=== PATIENT | male | born 1965 | race Caucasian/White ===

== ENCOUNTER 2017-02-03 13:49 | Emergency (ER) | payer BC ==
[~2017-02-03] VITALS: Ht 172.7 cm; Wt 84.1 kg
[~2017-02-03 13:49] MED LIST: ATIVAN 0.50.5 MG/TAB PO; LEVAQUIN 5500 MG/TAB PO; MOBIC15 MG PO; NORCO 325 MG-51 TAB PO; OMNICEF 300MG300 MG PO; PREDNISONE20 MG PO; PRILOSEC 20MG20 MG PO; SINGULAIR; TENORMIN 2525 MG/TAB PO; VENTOLIN0.09 MG IH; ZYRTEC 10MG10 MG PO
[2017-02-03 13:52] VITALS: TEMP 97.9
[2017-02-03 14:27] LABS: PH 5 (5-8); SQUAMOUS EPITHELIAL 0-2 /hpf; URINE APPEARANCE Clear; URINE BACTERIA None Seen /hpf; URINE BILIRUBIN Negative (NEGATIVE); URINE BLOOD Negative (NEGATIVE); URINE COLOR Amber; URINE GLUCOSE Negative (NEGATIVE); URINE KETONE Negative (NEGATIVE); URINE RBC 0-2 /hpf; URINE UROBILINOGEN >=4.0 mg/dL (NEGATIVE); URINE WBC 0-2 /hpf
[2017-02-03 14:39] LABS: BASO # 0.1 (0.0-0.2); EOS # 0.2 (0.0-0.7); EOS % 4.2 % (0-4.0); GRAN # 2.3 (1.4-6.5); GRAN % 39.7 % (42.2-75.2); HEMATOCRIT 40.4 % (42.0-52.0); HEMOGLOBIN 13.3 g/dl (13.5-18.0); LYMPH # 2.6 (1.2-3.4); LYMPH % 45.3 % (20.0-51.0); MEAN CELL VOLUME 90 fl (80.0-100.0); MEAN CORPUSCULAR HEMOGLOBIN 30 pg (27.0-31.0); MEAN CORPUSCULAR HGB CONC 33 g/dl (33.0-37.0); MEAN PLATELET VOLUME 12.1 fl (7.4-10.4); MONO # 0.6 (0.1-0.6); MONO % 9.6 % (1.7-9.3); PLATELET COUNT 72 K/mm3 (130-400); WHITE BLOOD COUNT 5.7 K/mm3 (4.8-10.8)
[2017-02-03 14:44] LABS: ADJUSTED CALCIUM 8.5 mg/dL (8.4-10.2); ALBUMIN 3.9 gm/dL (3.5-5.0); BILIRUBIN,TOTAL 0.7 mg/dL (0.0-1.0); CALCIUM 8.4 mg/dL (8.4-10.2); CREATININE, serum 0.77 mg/dL (0.66-1.25); POTASSIUM 3.9 mmol/L (3.4-5.0); TOTAL PROTEIN 7.5 gm/dL (6.4-8.2)
[2017-02-03] MEDS ORDERED: FLEXERIL 1010 MG/TAB PO (15:41)
[2017-02-03] MEDS ORDERED: NORCO 325 MG-51 TAB PO (15:41)
[2017-02-03 15:50] VITALS: BP 128/62; PULSE 78
== END 2017-02-03 15:51 | disposition home or self-care (01) ==
LOC: COL.ER 13:49
PROVIDERS: Nurse Practitioner
DX: R10.9 Unspecified abdominal pain (principal); I10 Essential (primary) hypertension; K21.9 Gastro-esophageal reflux disease without esophagitis; F17.210 Nicotine dependence, cigarettes, uncomplicated; Z98.890 Other specified postprocedural states
CPT/HCPCS: J1885; J7030

== ENCOUNTER → 2017-03-23 | Outpatient (CLI) | payer BC ==
[~2017-03-23] MED LIST changes: +FLEXERIL 1010 MG/TAB PO
== END ==
LOC: COL.RAD 15:45
DX: M79.674 Pain in right toe(s) (principal)

== ENCOUNTER → 2017-03-28 | Outpatient (CLI) | payer BC ==
[2017-03-28 17:16] LABS: BASO # 0.1 (0.0-0.2); BASO % 1.5 % (0.0-2.0); EOS # 0.3 (0.0-0.7); EOS % 4.9 % (0-4.0); GRAN # 2.7 (1.4-6.5); GRAN % 41.4 % (42.2-75.2); HEMATOCRIT 41.7 % (42.0-52.0); HEMOGLOBIN 14.2 g/dl (13.5-18.0); LYMPH # 2.7 (1.2-3.4); LYMPH % 41.9 % (20.0-51.0); MEAN CELL VOLUME 90 fl (80.0-100.0); MEAN CORPUSCULAR HEMOGLOBIN 31 pg (27.0-31.0); MEAN CORPUSCULAR HGB CONC 34 g/dl (33.0-37.0); MEAN PLATELET VOLUME 14.1 fl (7.4-10.4); MONO # 0.7 (0.1-0.6); PLATELET COUNT 68 K/mm3 (130-400); RED BLOOD COUNT 4.66 M/mm3 (4.20-5.60); REDCELL DISTRIBUTION WIDTH-CV 13.1 % (11.5-14.5); WHITE BLOOD COUNT 6.5 K/mm3 (4.8-10.8)
[2017-03-28 17:40] LABS: C-REACTIVE PROTEIN < 0.5 mg/dL (0.0-0.9); ERYTHROCYTE SEDIMENTATION RATE 7 mm/hr (0-30)
== END ==
LOC: COL.LAB 14:05
PROVIDERS: Family Medicine
DX: M79.674 Pain in right toe(s) (principal)

== ENCOUNTER 2017-08-02 14:45 | Emergency (ER) | payer OTHER ==
[~2017-08-02] VITALS: Ht 172.7 cm; Wt 82.7 kg
[2017-08-02 14:53] VITALS: TEMP 98.7
[2017-08-02 16:13] LABS: BASO # 0.1 (0.0-0.2); BASO % 0.9 % (0.0-2.0); EOS # 0.2 (0.0-0.7); EOS % 4.5 % (0-4.0); GRAN # 2.5 (1.4-6.5); GRAN % 45.5 % (42.2-75.2); HEMATOCRIT 41.4 % (42.0-52.0); HEMOGLOBIN 13.7 g/dl (13.5-18.0); LYMPH # 2.1 (1.2-3.4); LYMPH % 38.1 % (20.0-51.0); MEAN CELL VOLUME 92 fl (80.0-100.0); MEAN CORPUSCULAR HEMOGLOBIN 30 pg (27.0-31.0); MEAN CORPUSCULAR HGB CONC 33 g/dl (33.0-37.0); MEAN PLATELET VOLUME 12.9 fl (7.4-10.4); MONO # 0.6 (0.1-0.6); MONO % 10.6 % (1.7-9.3); PLATELET COUNT 53 K/mm3 (130-400); RED BLOOD COUNT 4.52 M/mm3 (4.20-5.60); REDCELL DISTRIBUTION WIDTH-CV 12.8 % (11.5-14.5)
[2017-08-02 16:17] LABS: ALANINE AMINOTRANSFERASE 127 U/L (21-72); ALBUMIN 3.9 gm/dL (3.5-5.0); ALKALINE PHOSPHATASE 138 U/L (50-136); ANION GAP 9 mmol/L (7-16); AST,SGOT 128 U/L (15-37); BILIRUBIN,TOTAL 0.8 mg/dL (0.0-1.0); BLOOD UREA NITROGEN 16 mg/dL (9-20); CALCIUM 9.3 mg/dL (8.4-10.2); CARBON DIOXIDE 25 mmol/L (22-30); CHLORIDE 107 mmol/L (98-107); CREATININE, serum 0.77 mg/dL (0.66-1.25); GLUCOSE 108 mg/dL (74-106); POTASSIUM 4.1 mmol/L (3.4-5.0); SODIUM 140 mmol/L (137-145); TOTAL PROTEIN 7.6 gm/dL (6.4-8.2)
[2017-08-02 16:22] LABS: INR 1.2 (0.8-3.0); PROTHROMBIN TIME 13.7 SECONDS (9.7-12.8)
[2017-08-02 16:25] LABS: PARTIAL THROMBOPLASTIN TIME 37.6 SECONDS (26.0-37.0)
[2017-08-02 16:30] LABS: TROPONIN-I < 0.012 ng/mL (0.000-0.034)
[2017-08-02] MEDS ORDERED: FLEXERIL 1010 MG/TAB PO (17:27)
[2017-08-02] MEDS ORDERED: PERCOCET 325 MG1 TA2 PO (17:27)
[2017-08-02 17:37] VITALS: BP 142/99; PULSE 76
== END 2017-08-02 17:38 | disposition home or self-care (01) ==
LOC: COL.ER 14:45
PROVIDERS: Emergency Medicine
DX: R07.89 Other chest pain (principal); M54.9 Dorsalgia, unspecified; R05 Cough; D69.6 Thrombocytopenia, unspecified; I10 Essential (primary) hypertension; K21.9 Gastro-esophageal reflux disease without esophagitis; B19.20 Unspecified viral hepatitis C without hepatic coma; F17.210 Nicotine dependence, cigarettes, uncomplicated; Z86.711 Personal history of pulmonary embolism
CPT/HCPCS: J2270; J2360; J7030; Q9967

== ENCOUNTER → 2017-08-07 | Outpatient (CLI) | payer OTHER ==
[~2017-08-07] MED LIST changes: +PERCOCET 325 MG1 TA2 PO
== END ==
LOC: COL.LAB 15:18
DX: B19.20 Unspecified viral hepatitis C without hepatic coma (principal)
CPT/HCPCS: 87522

== ENCOUNTER → 2017-08-07 | Outpatient (CLI) | payer OTHER | LOC: COL.RAD 15:33 | DX: M25.512 Pain in left shoulder (principal) ==

== ENCOUNTER 2018-09-27 16:20 | Emergency (ER) | payer SELFPAY ==
[~2018-09-27] VITALS: Ht 172.7 cm; Wt 93.2 kg
[~2018-09-27 16:20] MED LIST changes: +ASPIRIN 81M81 MG/TA2 PO; +MULTI VITAMINS1 TAB PO; +PROAIR RES117 MCG/Ac IH; +TOPROL XL 25MG25 MG PO; +XARELTO20 MG PO
[2018-09-27 16:23] VITALS: TEMP 98.6
[2018-09-27 17:01] LABS: ALANINE AMINOTRANSFERASE 119 U/L (21-72); ALBUMIN 3.7 gm/dL (3.5-5.0); ALKALINE PHOSPHATASE 265 U/L (50-136); ANION GAP 8 mmol/L (7-16); AST,SGOT 211 U/L (15-37); BILIRUBIN,TOTAL 1.7 mg/dL (0.0-1.0); BLOOD UREA NITROGEN 15 mg/dL (9-20); CALCIUM 8.9 mg/dL (8.4-10.2); CARBON DIOXIDE 24 mmol/L (22-30); CHLORIDE 105 mmol/L (98-107); CREATININE, serum 0.83 (0.66-1.25); GLUCOSE 94 mg/dL (74-106); LIPASE 373 U/L (23-300); POTASSIUM 4.6 mmol/L (3.4-5.0); SODIUM 138 mmol/L (137-145); TOTAL PROTEIN 8.5 gm/dL (6.4-8.2)
[2018-09-27 17:04] LABS: BASO # 0.1 (0.0-0.2); BASO % 1.4 % (0.0-2.0); EOS # 0.3 (0.0-0.7); EOS % 3.9 % (0-4.0); GRAN % 51.1 % (42.2-75.2); HEMATOCRIT 42.9 % (42.0-52.0); HEMOGLOBIN 14.4 g/dl (13.5-18.0); LYMPH # 2.5 (1.2-3.4); LYMPH % 31.4 % (20.0-51.0); MEAN CELL VOLUME 92 fl (80.0-100.0); MEAN CORPUSCULAR HEMOGLOBIN 31 pg (27.0-31.0); MEAN CORPUSCULAR HGB CONC 34 g/dl (33.0-37.0); MONO # 0.9 (0.1-0.6); MONO % 11.8 % (1.7-9.3); RED BLOOD COUNT 4.69 M/mm3 (4.20-5.60); REDCELL DISTRIBUTION WIDTH-CV 14.8 % (11.5-14.5)
[2018-09-27 17:07] LABS: PLATELET COUNT 45 K/mm3 (130-400)
[2018-09-27 17:13] LABS: TROPONIN-I < 0.012 ng/mL (0.000-0.035)
[2018-09-27 17:25] LABS: INR 1.2 (0.8-3.0); PROTHROMBIN TIME 13.2 SECONDS (9.7-12.8)
[2018-09-27 17:27] LABS: PARTIAL THROMBOPLASTIN TIME 37.7 SECONDS (26.0-37.0)
[2018-09-27 18:10] LABS: COLLECTION METHOD CLEAN CATCH
[2018-09-27 18:15] LABS: MUCOUS Present /lpf; PH 6 (5-8); SQUAMOUS EPITHELIAL 0-2 /hpf; URINE APPEARANCE Clear; URINE BACTERIA None Seen /hpf; URINE BILIRUBIN Negative (NEGATIVE); URINE BLOOD Negative (NEGATIVE); URINE COLOR Yellow; URINE GLUCOSE Negative (NEGATIVE); URINE KETONE Negative (NEGATIVE); URINE LEUKOCYTE ESTERASE Negative (NEGATIVE); URINE NITRATE Negative (NEGATIVE); URINE PROTEIN(semi-quant) Negative (NEGATIVE); URINE RBC 0-2 /hpf; URINE UROBILINOGEN >=4.0 mg/dL (NEGATIVE)
[2018-09-27] MEDS ORDERED: CORGARD20 MG PO (18:23)
[2018-09-27] MEDS ORDERED: ZYPREXA10 MG PO (18:23)
[2018-09-27] MEDS ORDERED: COGENTIN 1MG1 MG/TAB PO (18:23)
[2018-09-27] MEDS ORDERED: PROZAC40 MG PO (18:23)
[2018-09-27] MEDS ORDERED: VOLTAREN GEL 1%1 TU TP (18:24)
[2018-09-27] MEDS ORDERED: CARAFATE 1GM1 G PO (18:24)
[2018-09-27] MEDS ORDERED: LAMICTAL 25MG T25 MG PO (18:24)
[2018-09-27] MEDS ORDERED: AMBIEN 10MG10 MG PO (18:25)
[2018-09-27] MEDS ORDERED: PROAIR HFA0.09 MG/AC IH (18:25)
[2018-09-27] MEDS ORDERED: PROTONIX 40MG T40 MG PO (18:25)
[2018-09-27 19:28] VITALS: BP 135/91; PULSE 73
== END 2018-09-27 19:30 | disposition home or self-care (01) ==
LOC: COL.ER 16:20
PROVIDERS: Emergency Medicine
DX: K74.60 Unspecified cirrhosis of liver (principal); D69.6 Thrombocytopenia, unspecified; C22.0 Liver cell carcinoma; F17.210 Nicotine dependence, cigarettes, uncomplicated
CPT/HCPCS: J2405; J3010; Q9967

== ENCOUNTER 2018-10-08 17:34 | Emergency (ER) | payer SELFPAY ==
[~2018-10-08] VITALS: Ht 172.7 cm; Wt 92.3 kg
[~2018-10-08 17:34] MED LIST changes: +AMBIEN 10MG10 MG PO; +CARAFATE 1GM1 G PO; +COGENTIN 1MG1 MG/TAB PO; +CORGARD20 MG PO; +LAMICTAL 25MG T25 MG PO; +PROAIR HFA0.09 MG/AC IH; +PROTONIX 40MG T40 MG PO; +PROZAC40 MG PO; +VOLTAREN GEL 1%1 TU TP; +ZYPREXA10 MG PO
[2018-10-08 17:44] VITALS: TEMP 99.9
[2018-10-08 18:11] LABS: BASO # 0.1 (0.0-0.2); BASO % 1.2 % (0.0-2.0); EOS # 0.1 (0.0-0.7); EOS % 2.3 % (0-4.0); GRAN # 2.5 (1.4-6.5); GRAN % 52.2 % (42.2-75.2); HEMATOCRIT 39.2 % (42.0-52.0); HEMOGLOBIN 13.1 g/dl (13.5-18.0); LYMPH # 1.6 (1.2-3.4); LYMPH % 32.4 % (20.0-51.0); MEAN CELL VOLUME 91 fl (80.0-100.0); MEAN CORPUSCULAR HEMOGLOBIN 30 pg (27.0-31.0); MEAN CORPUSCULAR HGB CONC 33 g/dl (33.0-37.0); MONO # 0.6 (0.1-0.6); MONO % 11.7 % (1.7-9.3); RED BLOOD COUNT 4.31 M/mm3 (4.20-5.60); REDCELL DISTRIBUTION WIDTH-CV 14.8 % (11.5-14.5)
[2018-10-08 18:14] LABS: PLATELET COUNT 38 K/mm3 (130-400)
[2018-10-08 18:23] LABS: ALBUMIN 3.4 gm/dL (3.5-5.0); BILIRUBIN,TOTAL 1.3 mg/dL (0.0-1.0); C-REACTIVE PROTEIN 0.8 mg/dL (0.0-0.9); CALCIUM 8.8 mg/dL (8.4-10.2); CREATININE, serum 0.84 (0.66-1.25); POTASSIUM 4.1 mmol/L (3.4-5.0); TOTAL PROTEIN 7.8 gm/dL (6.4-8.2)
[2018-10-08 19:34] VITALS: BP 136/87; PULSE 74
[2018-10-08 19:34] LABS: COLLECTION METHOD CLEAN CATCH
[2018-10-08 19:40] LABS: MUCOUS Present /lpf; PH 5 (5-8); SQUAMOUS EPITHELIAL None Seen /hpf; URINE APPEARANCE Clear; URINE BACTERIA None Seen /hpf; URINE BILIRUBIN Negative (NEGATIVE); URINE BLOOD Negative (NEGATIVE); URINE COLOR Amber; URINE GLUCOSE Negative (NEGATIVE); URINE KETONE Negative (NEGATIVE); URINE LEUKOCYTE ESTERASE Negative (NEGATIVE); URINE NITRATE Negative (NEGATIVE); URINE PROTEIN(semi-quant) Negative (NEGATIVE); URINE RBC 0-2 /hpf; URINE UROBILINOGEN >=4.0 mg/dL (NEGATIVE)
== END 2018-10-08 19:35 | disposition home or self-care (01) ==
LOC: COL.ER 17:34
PROVIDERS: Family Medicine
DX: K86.1 Other chronic pancreatitis (principal); C22.8 Malignant neoplasm of liver, primary, unspecified as to type
CPT/HCPCS: J1170; J2405; J7030

== ENCOUNTER 2018-10-15 16:12 | Emergency (ER) | payer OTHER ==
[~2018-10-15] VITALS: Ht 172.7 cm; Wt 88.6 kg
[2018-10-15 16:21] VITALS: TEMP 97.1
[2018-10-15] MEDS ORDERED: NEXAVAR200 M1 PO (16:25)
[2018-10-15 16:59] LABS: INR 1.2 (0.8-3.0); PROTHROMBIN TIME 13.9 SECONDS (9.7-12.8)
[2018-10-15 17:00] LABS: BASO # 0.1 (0.0-0.2); BASO % 1.2 % (0.0-2.0); EOS # 0.2 (0.0-0.7); GRAN # 2.7 (1.4-6.5); GRAN % 54.5 % (42.2-75.2); HEMATOCRIT 40.7 % (42.0-52.0); HEMOGLOBIN 13.8 g/dl (13.5-18.0); LYMPH # 1.5 (1.2-3.4); LYMPH % 29.7 % (20.0-51.0); MEAN CELL VOLUME 90 fl (80.0-100.0); MEAN CORPUSCULAR HEMOGLOBIN 31 pg (27.0-31.0); MEAN CORPUSCULAR HGB CONC 34 g/dl (33.0-37.0); MONO # 0.6 (0.1-0.6); MONO % 11.2 % (1.7-9.3); RED BLOOD COUNT 4.52 M/mm3 (4.20-5.60); REDCELL DISTRIBUTION WIDTH-CV 15.1 % (11.5-14.5)
[2018-10-15 17:02] LABS: PARTIAL THROMBOPLASTIN TIME 38.6 SECONDS (26.0-37.0)
[2018-10-15 17:12] LABS: PLATELET COUNT 35 K/mm3 (130-400)
[2018-10-15 17:16] LABS: ALANINE AMINOTRANSFERASE 103 U/L (21-72); ALBUMIN 3.6 gm/dL (3.5-5.0); ALKALINE PHOSPHATASE 254 U/L (50-136); ANION GAP 7 mmol/L (7-16); AST,SGOT 235 U/L (15-37); BILIRUBIN,TOTAL 1.6 mg/dL (0.0-1.0); BLOOD UREA NITROGEN 11 mg/dL (9-20); C-REACTIVE PROTEIN 0.7 mg/dL (0.0-0.9); CALCIUM 8.6 mg/dL (8.4-10.2); CARBON DIOXIDE 23 mmol/L (22-30); CHLORIDE 107 mmol/L (98-107); CREATININE, serum 0.87 (0.66-1.25); GLUCOSE 105 mg/dL (74-106); LIPASE 488 U/L (23-300); POTASSIUM 3.8 mmol/L (3.4-5.0); SODIUM 137 mmol/L (137-145); TOTAL PROTEIN 8.5 gm/dL (6.4-8.2)
[2018-10-15 17:30] LABS: TROPONIN-I < 0.012 ng/mL (0.000-0.035)
[2018-10-15] MEDS ORDERED: ZOFRAN ODT4 MG PO (18:51)
[2018-10-15] MEDS ORDERED: ROXICODONE 55 MG/TAB PO (18:51)
[2018-10-15 19:20] VITALS: BP 143/92; PULSE 72
== END 2018-10-15 19:20 | disposition home or self-care (01) ==
LOC: COL.ER 16:12
PROVIDERS: Emergency Medicine
DX: C22.0 Liver cell carcinoma (principal); R07.89 Other chest pain; R10.11 Right upper quadrant pain; I10 Essential (primary) hypertension; F17.210 Nicotine dependence, cigarettes, uncomplicated
CPT/HCPCS: J1170; J2405; Q9967

== ENCOUNTER 2018-10-20 11:21 | Inpatient (IN) | payer OTHER ==
[~2018-10-20] VITALS: Ht 172.7 cm; Wt 84.5 kg
[~2018-10-20 11:21] MED LIST changes: +NEXAVAR200 M1 PO; +ROXICODONE 55 MG/TAB PO; +ZOFRAN ODT4 MG PO
[2018-10-20 12:38] LABS: ALBUMIN 3.6 gm/dL (3.5-5.0); BILIRUBIN,TOTAL 2.2 mg/dL (0.0-1.0); C-REACTIVE PROTEIN 1.4 mg/dL (0.0-0.9); CALCIUM 8.9 mg/dL (8.4-10.2); CREATININE, serum 0.85 (0.66-1.25); POTASSIUM 4.7 mmol/L (3.4-5.0); TOTAL PROTEIN 8.6 gm/dL (6.4-8.2)
[2018-10-20 12:53] LABS: BASO # 0.1 (0.0-0.2); BASO % 1.1 % (0.0-2.0); EOS # 0.1 (0.0-0.7); EOS % 1.7 % (0-4.0); GRAN # 3.6 (1.4-6.5); HEMATOCRIT 46.2 % (42.0-52.0); HEMOGLOBIN 15.3 g/dl (13.5-18.0); LYMPH # 1.9 (1.2-3.4); LYMPH % 30.4 % (20.0-51.0); MEAN CELL VOLUME 91 fl (80.0-100.0); MEAN CORPUSCULAR HEMOGLOBIN 30 pg (27.0-31.0); MEAN CORPUSCULAR HGB CONC 33 g/dl (33.0-37.0); MONO # 0.6 (0.1-0.6); MONO % 9.5 % (1.7-9.3); RED BLOOD COUNT 5.06 M/mm3 (4.20-5.60); REDCELL DISTRIBUTION WIDTH-CV 14.8 % (11.5-14.5)
[2018-10-20 13:01] LABS: PLATELET COUNT 46 K/mm3 (130-400)
[2018-10-20] MEDS ORDERED: NEURONTIN300 MG/CAP PO (13:53)
--- NOTE | 2018-10-20 15:23 | NUR ---
PATIENT ADMITTED TO ROOM 319 ORIENTED TO THE ROOM ALSO. DAUGHTER HAS JUST ARRIVED.
[2018-10-20 15:29] VITALS: BP 148/89; PULSE 57; TEMP 98.3
[2018-10-20 17:15] LABS: INR 1.3 (0.8-3.0); PROTHROMBIN TIME 14.3 SECONDS (9.7-12.8)
--- NOTE | 2018-10-20 18:00 | NUR ---
NOTIFIED RENZO IN RADIOLOGY THAT THIS PATIENT WILL NEED A ABDOMEN ULTRASOUND IN THE MORNING. PATIENT NEEDS TO BE NPO AFTER MIDNIGHT.
--- NOTE | 2018-10-20 19:34 | NUR ---
Report received from LESIA Carroll. Patient laying on right side when this nurse entered the room. C/o pain 01/26 to abdomen. Noted to be slightly firm and distended. States he hasn't had a bowel movement in a couple days and thinks the pain could be from that. PRN Miralax given at 1715 and still awaiting results. PRN Dilaudid given for abdominal pain. Awaiting for results. Will reassess patient.
[2018-10-20 19:46] VITALS: BP 157/90; PULSE 57; TEMP 98
[2018-10-20 21:12] LABS: COLLECTION METHOD CLEAN CATCH
[2018-10-20 21:17] LABS: MUCOUS Present /lpf; PH 6 (5-8); SQUAMOUS EPITHELIAL None Seen /hpf; URINE APPEARANCE Clear; URINE BACTERIA None Seen /hpf; URINE BILIRUBIN Negative (NEGATIVE); URINE BLOOD Negative (NEGATIVE); URINE COLOR Amber; URINE GLUCOSE Negative (NEGATIVE); URINE KETONE Negative (NEGATIVE); URINE LEUKOCYTE ESTERASE Negative (NEGATIVE); URINE NITRATE Negative (NEGATIVE); URINE PROTEIN(semi-quant) Negative (NEGATIVE); URINE UROBILINOGEN >=4.0 mg/dL (NEGATIVE)
--- NOTE | 2018-10-20 21:47 | NUR ---
Post-void residual 0ml. Patient stated he voided a lot.
[2018-10-20 23:21] VITALS: BP 156/86; PULSE 62; TEMP 98.3
[2018-10-21 03:50] VITALS: BP 152/72; PULSE 63; TEMP 97.7
--- NOTE | 2018-10-21 03:56 | NUR ---
Patient called and stated he was vomiting. Small amount of emesis noted. PRN Zofran given. Patient stated this was effective, but he was in a lot of pain. PRN Dilaudid given. Patient stated this helped a little bit. Warm blanket also given to help reduce pain. Stated this was a little helpful as well. When patient stated he was in a lot of pain, he was crying and noted to breathe fast. Currently resting in bed with eyes closed. Will monitor.
[2018-10-21 07:07] LABS: BASO # 0.1 (0.0-0.2); BASO % 0.8 % (0.0-2.0); EOS # 0.1 (0.0-0.7); GRAN # 3.8 (1.4-6.5); GRAN % 56.7 % (42.2-75.2); HEMATOCRIT 43.3 % (42.0-52.0); HEMOGLOBIN 14.3 g/dl (13.5-18.0); LYMPH # 2.2 (1.2-3.4); LYMPH % 32.5 % (20.0-51.0); MEAN CELL VOLUME 91 fl (80.0-100.0); MEAN CORPUSCULAR HEMOGLOBIN 30 pg (27.0-31.0); MEAN CORPUSCULAR HGB CONC 33 g/dl (33.0-37.0); MONO # 0.5 (0.1-0.6); MONO % 7.7 % (1.7-9.3); RED BLOOD COUNT 4.76 M/mm3 (4.20-5.60); REDCELL DISTRIBUTION WIDTH-CV 14.6 % (11.5-14.5)
[2018-10-21 07:09] LABS: PLATELET COUNT 42 K/mm3 (130-400)
[2018-10-21 07:18] LABS: ALBUMIN 3.3 gm/dL (3.5-5.0); CREATININE, serum 0.72 (0.66-1.25); INR 1.2 (0.8-3.0); MAGNESIUM 1.8 mg/dL (1.6-2.3); PHOSPHOROUS 3.1 mg/dL (2.5-4.5); POTASSIUM 4.1 mmol/L (3.4-5.0); PROTHROMBIN TIME 14.1 SECONDS (9.7-12.8); TOTAL PROTEIN 7.9 gm/dL (6.4-8.2)
--- NOTE | 2018-10-21 07:19 | NUR ---
Report given to LESIA Carroll
[2018-10-21 07:44] VITALS: BP 145/81; PULSE 92; TEMP 98.3
--- NOTE | 2018-10-21 08:15 | NUR ---
PATIENT ASSESSMENT COMPLETED. COMPLAINS OF ABDOMEN PAIN PRN DILAUDID WILL BE GIVEN AT 0830 WHEN IT CAN BE GIVEN. ALONG WITH NEW ORDER FROM DR. SAAVEDRA
--- NOTE | 2018-10-21 11:33 | NUR ---
Plan: To return home with support. Glenna . Assess: Patient reports that he has a recent DXof cancer and does not know what to expect at home. Patient reports that he has been fairly independent. Patient report that he is uninsured and recieved the ppw for financial assistance. Patient denies and declines having a DPOA or setting one up. Patient indicated that he may in the near future need Home health once he has some type of insurance. Patient reports not having a PCP. Patient reports that he uses [facility] for RX and will need medication assistance if sent home with medications. Action: Called Terrie for financial aids officer, patient will need medication voucher upon dc with medications. Educated patient on voucher and community resources. Follow-up suggested.
[2018-10-21 11:46] VITALS: BP 140/74; PULSE 62; TEMP 98.6
--- NOTE | 2018-10-21 13:30 | NUR ---
PATIENT RESTING IN BED. HE REPORTS THAT PAIN IS TOLERABLE AND DOES NOT WANT ANY MEDICATION AT THIS TIME. HE IS STARTING TO HAVE SOME SMALL HARD BOWEL MOVEMENTS RESULTING IN SOME ABDOMEN PAIN RELIEF. HE WILL CALL ME IF PAIN INCREASES, WILL CONTINUE TO MONITOR FOR NEEDS
[2018-10-21 15:48] VITALS: BP 165/92; PULSE 66; TEMP 97.5
--- NOTE | 2018-10-21 16:26 | NUR ---
PATIENT REQUESTED ANOTHER SUPPOSITORY. THIS WAS PROVIDED PER HIS REQUEST. HE INSERTS IT HIMSELF WITH SOME LUBRICATION JELLY THAT WAS SUPPLIED TO HIM ALSO.
[2018-10-21 19:18] VITALS: BP 143/81; PULSE 68; TEMP 98.6
--- NOTE | 2018-10-21 19:50 | NUR ---
Shift assessment complete. Pt resting in bed, awake, a&o, cooperative c cares. Continued c/o abd pain rated "8/10"; PRN Sarah admin per pt req. Pt also c/o continued constipation; PRN Mirilax provided. Pt any other c/o. IV patent. Tele in place. Pt denies further needs. Call light in reach, will monitor.
[2018-10-21 23:37] VITALS: BP 128/77; PULSE 70; TEMP 98.5
[2018-10-22 04:06] VITALS: BP 164/86; PULSE 70; TEMP 98.1
--- NOTE | 2018-10-22 05:53 | NUR ---
Pt resting in bed, condition unchanged. Pt has rested well int this shift c few needs. Continued c/o abd pain which is worse when trying to have a BM. PRN pain mushroom growth media mixer several times per req, pt reports IV dilaudid "takes the edge off" but reports Roxicodone increases pain. Pt has had multiple small, hard BM's this shift c some relief, states "things are finally moving". Denies nausea or other c/o. Denies further needs at this time. Call light in reach et remains at bedside.
[2018-10-22 06:54] VITALS: BP 124/68; PULSE 66; TEMP 97.9
[2018-10-22 07:16] LABS: BASO % 0.9 % (0.0-2.0); EOS # 0.1 (0.0-0.7); EOS % 2.5 % (0-4.0); GRAN # 2.4 (1.4-6.5); GRAN % 53.8 % (42.2-75.2); HEMATOCRIT 39.4 % (42.0-52.0); HEMOGLOBIN 13.3 g/dl (13.5-18.0); LYMPH # 1.5 (1.2-3.4); MEAN CELL VOLUME 91 fl (80.0-100.0); MEAN CORPUSCULAR HEMOGLOBIN 31 pg (27.0-31.0); MEAN CORPUSCULAR HGB CONC 34 g/dl (33.0-37.0); MONO # 0.4 (0.1-0.6); MONO % 8.6 % (1.7-9.3); RED BLOOD COUNT 4.32 M/mm3 (4.20-5.60); REDCELL DISTRIBUTION WIDTH-CV 14.2 % (11.5-14.5)
[2018-10-22 07:18] LABS: PLATELET COUNT 28 K/mm3 (130-400)
[2018-10-22 07:27] LABS: ALBUMIN 3.1 gm/dL (3.5-5.0); BILIRUBIN,TOTAL 2.6 mg/dL (0.0-1.0); CREATININE, serum 0.67 (0.66-1.25); MAGNESIUM 1.7 mg/dL (1.6-2.3); TOTAL PROTEIN 7.3 gm/dL (6.4-8.2)
--- NOTE | 2018-10-22 07:55 | NUR ---
Pt alert and oriented. Pt stable. Pt reports pain in left abdomen and believes the oxycodone makes it worse and requests Dilaudid for pain. Pt RAC IV patent no redness or infiltration noted. pt spouse at bedside. Pt NPO for CT this am. Pt has call light in reach and denies SOB or dizziness.
[2018-10-22 09:03] LABS: INR 1.2 (0.8-3.0); PROTHROMBIN TIME 14.1 SECONDS (9.7-12.8)
--- NOTE | 2018-10-22 10:31 | NUR ---
SW attended clinical rounds. Awaiting results of CT scan. SW consulted financial counselor, Mg. Financial counseling to meet with the patient today. SW to continue to follow.
--- NOTE | 2018-10-22 12:04 | NUR ---
First visit from the oral and maxillofacial surgery resident. Solid Surface Fabricator prayed with patient and . No other needs right now.
[2018-10-22 12:09] VITALS: BP 140/89; PULSE 62; TEMP 98.4
[2018-10-22 15:49] VITALS: BP 153/113; PULSE 67; TEMP 97.6
[2018-10-22 15:57] VITALS: BP 178/94; PULSE 67
--- NOTE | 2018-10-22 18:18 | NUR ---
Pt stable this afternoon. Pt BP was increased but hospitalist restarted home BP meds and pain controlled with PRN Dilaudid. Pt IV patent no redness or infiltration noted. Pt has call light in reach and spouse at bedside. Pt pain in left abdomen. Pt only consuming clear liquids. Pt given PRN dulcolax with only gas noted.
--- NOTE | 2018-10-22 19:01 | NUR ---
Pt report given to Judy GRAF
[2018-10-22 19:51] VITALS: BP 141/94; PULSE 63; TEMP 98.4
--- NOTE | 2018-10-22 20:10 | NUR ---
Shift assessment complete. Pt resting in bed, awake, a&o, cooperative c cares. Pt c/o cont abd pain rated "8/10"; PRN pain emergency medical technician/driver per pt req. Pt also continued c/o constipation but reports passing gas. Denies any other c/o. IV patent. Tele in place. Pt denies needs. Call light in reach, will monitor.
[2018-10-23 00:08] VITALS: BP 152/73; PULSE 61; TEMP 98.6
[2018-10-23 04:33] VITALS: BP 101/67; PULSE 60; TEMP 98.6
[2018-10-23 06:17] LABS: BASO % 0.7 % (0.0-2.0); EOS # 0.1 (0.0-0.7); EOS % 3.4 % (0-4.0); GRAN # 2.1 (1.4-6.5); GRAN % 50.6 % (42.2-75.2); HEMATOCRIT 39.8 % (42.0-52.0); HEMOGLOBIN 13.3 g/dl (13.5-18.0); LYMPH # 1.5 (1.2-3.4); LYMPH % 36.8 % (20.0-51.0); MEAN CELL VOLUME 91 fl (80.0-100.0); MEAN CORPUSCULAR HEMOGLOBIN 30 pg (27.0-31.0); MEAN CORPUSCULAR HGB CONC 33 g/dl (33.0-37.0); MONO # 0.3 (0.1-0.6); MONO % 8.3 % (1.7-9.3); REDCELL DISTRIBUTION WIDTH-CV 13.8 % (11.5-14.5)
[2018-10-23 06:22] LABS: PLATELET COUNT 31 K/mm3 (130-400)
[2018-10-23 06:23] LABS: ALBUMIN 3.1 gm/dL (3.5-5.0); BILIRUBIN,TOTAL 2.4 mg/dL (0.0-1.0); CALCIUM 8.1 mg/dL (8.4-10.2); CREATININE, serum 0.74 (0.66-1.25); POTASSIUM 4.1 mmol/L (3.4-5.0); TOTAL PROTEIN 7.4 gm/dL (6.4-8.2)
[2018-10-23 08:13] VITALS: BP 148/90; PULSE 71; TEMP 99.1
--- NOTE | 2018-10-23 09:11 | NUR ---
Pt stable this am.Pt alert and oriented. Pt pain managed with PRN meds. Pt edu on pain management and trying to transition to PO pain meds to manage pain. Pt tolerating clear liquids. Pt has spouse at bedside through the night. Pt IV patent no infiltration or redness. Pt am assessment completed. Pt has call light in reach.
[2018-10-23 12:48] VITALS: BP 143/82; PULSE 60; TEMP 98.6
--- NOTE | 2018-10-23 15:28 | NUR ---
SW met with the patient and patient's to review discharge plan. The patient reports that he still plans to return home with his . SW discussed primary care. The patient reports that he already has an appointment scheduled at [facility] on 10/24. He states that he plans to follow up there. The patient reports that money is tight for him and his and that he will need assistance with meds. SW discussed how [facility] provides medication assistace. SW to continue to follow to help with medication assistance.
[2018-10-23 16:40] VITALS: BP 142/89; PULSE 65; TEMP 98.4
--- NOTE | 2018-10-23 18:55 | NUR ---
Pt stable and pain managed with PRN meds. Pt IV free of complications. Pt had large BM s/p Mag citrate. Pt has spouse at bedside and denies needs. Pt tolerated low fat diet well. No nausea or vomiting. Pt has call light in reach and denies needs.
[2018-10-23 19:49] VITALS: BP 147/85; PULSE 66; TEMP 99
--- NOTE | 2018-10-23 22:43 | NUR ---
Patient assessed around 1999. Reported level 6 pain to abdomen at that time, and was given PRN Oxycodone as requested. Voiced no other needs or concerns at that time. at bedside. Patient reports he has been having good bowel movements, and no longer feels constipated. PRN Oxycodone was effective for pain management. Peripheral IV site to right AC is patent, and site is without redness, warmth, swelling, and pain. Call light is within reach.
[2018-10-24 00:28] VITALS: BP 150/91; PULSE 63; TEMP 98.3
[2018-10-24 03:26] VITALS: BP 145/68; PULSE 60; TEMP 98
--- NOTE | 2018-10-24 04:01 | NUR ---
Patient has received PRN Oxycodone twice so far this shift, which is effective with pain management. Voices no other needs or concerns so far this shift. Resting in bed with eyes closed at this time. at bedside. Call light is within reach.
--- NOTE | 2018-10-24 06:30 | NUR ---
Patient given PRN Oxycodone for pain to abdomen per orders. Voices no other complaints at this time. Has been able to have multiple BMs throughout the night, and denies having any feelings of constipation. Abdomen soft and non-tender. Bowel sounds active x 4. continues to be at bedside. Restingin bed with eyes closed at this time. Call light is within reach. Has voiced no questions or concerns throughout the night.
[2018-10-24 06:56] LABS: BASO % 0.8 % (0.0-2.0); EOS # 0.1 (0.0-0.7); EOS % 2.8 % (0-4.0); GRAN # 1.8 (1.4-6.5); GRAN % 50.7 % (42.2-75.2); HEMATOCRIT 38.2 % (42.0-52.0); HEMOGLOBIN 12.7 g/dl (13.5-18.0); LYMPH # 1.4 (1.2-3.4); MEAN CELL VOLUME 90 fl (80.0-100.0); MEAN CORPUSCULAR HEMOGLOBIN 30 pg (27.0-31.0); MEAN CORPUSCULAR HGB CONC 33 g/dl (33.0-37.0); MONO # 0.2 (0.1-0.6); MONO % 6.7 % (1.7-9.3); RED BLOOD COUNT 4.26 M/mm3 (4.20-5.60)
[2018-10-24 06:59] LABS: PLATELET COUNT 36 K/mm3 (130-400)
[2018-10-24 07:09] LABS: CALCIUM 8.4 mg/dL (8.4-10.2); CREATININE, serum 0.75 (0.66-1.25); POTASSIUM 3.9 mmol/L (3.4-5.0)
[2018-10-24 07:31] VITALS: BP 142/81; PULSE 65; TEMP 97.9
--- NOTE | 2018-10-24 09:15 | NUR ---
in pt with room. Will d/c today. Denies any needs at this time.
[2018-10-24] MEDS ORDERED: ROXICODONE 55 MG/TAB PO (09:20)
[2018-10-24] MEDS ORDERED: MAGCITRATE PO (09:21)
--- NOTE | 2018-10-24 09:34 | NUR ---
Pt lying in bed, breathing even and unlabored. Breath sounds clear on auscultation. C/O pain 5/10 to abdomen, just finished breakfast. Informed pt medicatin would be given when available. Completed morning assessment. Pt planning to be d/c home today. Pt denies any needs at this time.
--- NOTE | 2018-10-24 09:44 | NUR ---
PRIYANKA and PRIYANKA student attended clinical rounds. The patient is to discharge back home with his today, 10/24. The patient will only be renewed for a prescription for Oxycodone. The patient reports that he can afford that med by using the RX eamon. The patient reports that him and his canceled his appointment today at the [facility], but that he will be going there today to reschedule his appointment. The patient had no other questions or concerns for SW. No additional needs at this time.
--- NOTE | 2018-10-24 10:40 | NUR ---
Discharge paperwork given, all questions asked and answered. INT to RAC removed, catheter tip intact. No redness or swelling noted. Denies any needs, all belongings with pt.
== END 2018-10-24 10:54 | disposition home or self-care (01) | DRG 438 ==
LOC: COL.ER 11:21 → MEDICAL 13:01
PROVIDERS: Family Medicine; Internal Medicine Gastroenterology; Physician Assistant; ADMIT Family Medicine
DX: K85.30 Drug induced acute pancreatitis without necrosis or infection (principal); E43 Unspecified severe protein-calorie malnutrition; I81 Portal vein thrombosis; C22.0 Liver cell carcinoma; I85.00 Esophageal varices without bleeding; T45.1X5A Adverse effect of antineoplastic and immunosuppressive drugs, initial encounter; D69.6 Thrombocytopenia, unspecified; I25.10 Atherosclerotic heart disease of native coronary artery without angina pectoris; I25.2 Old myocardial infarction; I10 Essential (primary) hypertension; K59.00 Constipation, unspecified; E86.0 Dehydration; B18.2 Chronic viral hepatitis C; Z68.28 Body mass index [BMI] 28.0-28.9, adult; F31.9 Bipolar disorder, unspecified; F41.9 Anxiety disorder, unspecified; K74.60 Unspecified cirrhosis of liver; R33.9 Retention of urine, unspecified; R74.0 Nonspecific elevation of levels of transaminase and lactic acid dehydrogenase [LDH]; F20.9 Schizophrenia, unspecified; F17.210 Nicotine dependence, cigarettes, uncomplicated; Z86.711 Personal history of pulmonary embolism; Z79.891 Long term (current) use of opiate analgesic; Z88.1 Allergy status to other antibiotic agents; Z88.9 Allergy status to unspecified drugs, medicaments and biological substances
CPT/HCPCS: 99222-AI; 99232-AI; 99233-AI; 99239; J1170; J2405; J7030; Q9967

== ENCOUNTER 2018-11-28 14:30 | Outpatient (RCR) | payer MEDICAID ==
[2018-11-14 08:43] VITALS: BP 123/79; PULSE 68; TEMP 97.9
[2018-11-14 10:16] LABS: HEMOGLOBIN 12.3 g/dl (13.5-18.0); MEAN CELL VOLUME 90 fl (80.0-100.0); MEAN CORPUSCULAR HEMOGLOBIN 31 pg (27.0-31.0); MEAN CORPUSCULAR HGB CONC 34 g/dl (33.0-37.0); RED BLOOD COUNT 3.96 M/mm3 (4.20-5.60); REDCELL DISTRIBUTION WIDTH-CV 14.8 % (11.5-14.5)
[2018-11-14 10:17] LABS: HEMATOCRIT 35.8 % (42.0-52.0)
[2018-11-14 10:18] LABS: PLATELET COUNT 40 K/mm3 (130-400)
[2018-11-14 10:44] LABS: BASOPHIL 1 % (0-2); EOSINOPHIL 4 % (0-4); LYMPHOCYTE 27 % (20.0-51.0); METAMYELOCYTE 1 % (0-0); NEUTROPHILS 59 % (42.0-75.2); PLATELET ESTIMATE DECREASED (NORMAL); TEAR DROP CELLS 1+
--- NOTE | 2018-11-21 14:50 | NUR ---
Here for cares. PICC intact right upper arm with sterile dressing change done with insertion site cleansed with chloraprep x 1, chlorhexidine impregnated disk applied, skin prep, stat lock, and tegaderm applied. no signs or sypmtoms of IV complications noted. no concerns voiced. to return next week for cares. voiced understanding of instructions.
[2018-11-21 14:52] VITALS: BP 119/76; PULSE 61; TEMP 98.5
[2018-11-21 14:55] LABS: HEMOGLOBIN 12.5 g/dl (13.5-18.0); MEAN CELL VOLUME 90 fl (80.0-100.0); MEAN CORPUSCULAR HEMOGLOBIN 31 pg (27.0-31.0); MEAN CORPUSCULAR HGB CONC 34 g/dl (33.0-37.0); RED BLOOD COUNT 4.08 M/mm3 (4.20-5.60); REDCELL DISTRIBUTION WIDTH-CV 15.4 % (11.5-14.5)
[2018-11-21 15:04] LABS: BILIRUBIN,TOTAL 1.9 mg/dL (0.0-1.0); CALCIUM 8.4 mg/dL (8.4-10.2); CREATININE, serum 0.75 (0.66-1.25); POTASSIUM 4.2 mmol/L (3.4-5.0); TOTAL PROTEIN 7.5 gm/dL (6.4-8.2)
[2018-11-21 15:24] LABS: HEMATOCRIT 36.9 % (42.0-52.0)
[2018-11-21 15:27] LABS: PLATELET COUNT 44 K/mm3 (130-400)
[2018-11-21 16:06] LABS: BAND 9 % (0-10); BASOPHIL 2 % (0-2); EOSINOPHIL 6 % (0-4); LYMPHOCYTE 32 % (20.0-51.0); METAMYELOCYTE 2 % (0-0); MYELOCYTE 1 % (0-0); NEUTROPHILS 44 % (42.0-75.2); PLATELET ESTIMATE DECREASED (NORMAL)
[2018-11-21 16:07] LABS: HYPOCHROMIA 1+
[2018-11-21 16:08] LABS: ANISOCYTOSIS 1+; POIKILOCYTOSIS 1+; POLYCHROMASIA 1+
[2018-11-21 16:09] LABS: TARGET CELLS 1+
[~2018-11-28] VITALS: Ht 172.7 cm; Wt 89.6 kg
[~2018-11-28 14:30] MED LIST changes: +MAGCITRATE PO; +NEURONTIN300 MG/CAP PO; +XIFAXAN550 MG PO
[2018-11-28 14:45] VITALS: BP 114/74; PULSE 76; TEMP 98.4
--- NOTE | 2018-11-28 15:30 | NUR ---
patient here for cares. With sterile technique right upper arm PICC dressing change done with insertion site cleansed with ChloraPrep 1, chlorhexidine impregnated disc applied, skin prep, StatLock, and Tegaderm applied. No signs or symptoms of IV complications noted. No concerns voiced. Patient to return next week for cares. Patient voiced understanding of instructions.
[2018-12-05] MEDS ORDERED: DAZIDOX10 MG PO (02:53)
[2018-12-05] MEDS ORDERED: CORGARD40 MG PO (02:54)
[2018-12-05] MEDS ORDERED: FENTANYL 25 MCG TD (02:56)
--- NOTE | 2018-12-05 09:10 | NUR ---
PICC intact right upper arm. With sterile technique right upper arm PICC dressing changes done with insertion site cleansed with ChloraPrep 1, chlorhexidine impregnated disc applied, skin prep, StatLock, and Tegaderm applied. No signs or symptoms of IV complications noted. No concerns voiced. Patient has been admitted to the medical unit. We will await plan of care.
--- NOTE | 2018-12-06 13:23 | NUR ---
PER KEARA,PICC LINE TO BE REMOVED TODAY INPT.
== END 2018-12-06 13:23 | disposition home or self-care (01) ==
LOC: EUO 14:30
PROVIDERS: Internal Medicine Medical Oncology
DX: Z45.2 Encounter for adjustment and management of vascular access device (principal); C22.0 Liver cell carcinoma
CPT/HCPCS: C1751

== ENCOUNTER 2018-12-04 21:49 | Inpatient (IN) | payer MEDICAID ==
[~2018-12-04] VITALS: Ht 172.7 cm; Wt 88.4 kg
[2018-12-04 22:44] LABS: BASO # 0.1 (0.0-0.2); BASO % 0.9 % (0.0-2.0); EOS # 0.2 (0.0-0.7); EOS % 1.9 % (0-4.0); GRAN # 5.5 (1.4-6.5); GRAN % 62.6 % (42.2-75.2); HEMOGLOBIN 12.8 g/dl (13.5-18.0); LYMPH # 2.1 (1.2-3.4); MEAN CELL VOLUME 87 fl (80.0-100.0); MEAN CORPUSCULAR HEMOGLOBIN 31 pg (27.0-31.0); MEAN CORPUSCULAR HGB CONC 35 g/dl (33.0-37.0); MONO # 0.9 (0.1-0.6); MONO % 10.1 % (1.7-9.3); PLATELET COUNT 65 K/mm3 (130-400); RED BLOOD COUNT 4.19 M/mm3 (4.20-5.60); REDCELL DISTRIBUTION WIDTH-CV 17.2 % (11.5-14.5)
[2018-12-04 22:54] LABS: ALBUMIN 3.1 gm/dL (3.5-5.0); BILIRUBIN,TOTAL 4.7 mg/dL (0.0-1.0); C-REACTIVE PROTEIN 1.4 mg/dL (0.0-0.9); CALCIUM 8.4 mg/dL (8.4-10.2); CREATININE, serum 0.75 (0.66-1.25); POTASSIUM 5.1 mmol/L (3.4-5.0); TOTAL PROTEIN 8.4 gm/dL (6.4-8.2)
[2018-12-04 22:56] LABS: HEMATOCRIT 36.6 % (42.0-52.0)
[2018-12-05] VITALS (7 sets, daily range): BP systolic 118–151; BP diastolic 68–99; PULSE 71–87; TEMP 97.8–98.6
--- NOTE | 2018-12-05 02:35 | NUR ---
Pt arrived to room 317, transferred per wheelchair by ED staff. Pt awake, a&o, cooperative c cares. Pt c/o continued abd pain, denies other c/o. PICC in place to R upper arm, patent. Pt oriented to room, unit policies et current POC. Questions invited et answered et pt verbalizes understanding. Pt denies needs at this time. Will continue c admit process.
[2018-12-05] MEDS ORDERED: DAZIDOX10 MG PO (02:53)
[2018-12-05] MEDS ORDERED: CORGARD40 MG PO (02:54)
[2018-12-05] MEDS ORDERED: FENTANYL 25 MCG TD (02:56)
--- NOTE | 2018-12-05 05:46 | NUR ---
Pt resting in bed, condition unchanged. Pt has had continued c/o abd pain. Pain rated 9/10 before pain remediation project engineer at 0430, pt now rating pain 2/10. Pt has otherwise rested int c very few needs. No needs at this time. at bedside, call light in reach.
[2018-12-05 06:28] LABS: BASO # 0.1 (0.0-0.2); BASO % 0.9 % (0.0-2.0); EOS # 0.2 (0.0-0.7); EOS % 2.3 % (0-4.0); GRAN % 55.9 % (42.2-75.2); HEMOGLOBIN 11.8 g/dl (13.5-18.0); LYMPH # 2.7 (1.2-3.4); LYMPH % 30.2 % (20.0-51.0); MEAN CELL VOLUME 89 fl (80.0-100.0); MEAN CORPUSCULAR HEMOGLOBIN 30 pg (27.0-31.0); MEAN CORPUSCULAR HGB CONC 34 g/dl (33.0-37.0); MONO # 0.9 (0.1-0.6); MONO % 10.3 % (1.7-9.3); PLATELET COUNT 66 K/mm3 (130-400); RED BLOOD COUNT 3.88 M/mm3 (4.20-5.60); REDCELL DISTRIBUTION WIDTH-CV 17.4 % (11.5-14.5)
[2018-12-05 06:37] LABS: ALBUMIN 2.8 gm/dL (3.5-5.0); BILIRUBIN,TOTAL 4.9 mg/dL (0.0-1.0); CALCIUM 8.1 mg/dL (8.4-10.2); CREATININE, serum 0.75 (0.66-1.25); POTASSIUM 3.8 mmol/L (3.4-5.0); TOTAL PROTEIN 7.6 gm/dL (6.4-8.2)
[2018-12-05 07:08] LABS: INR 1.5 (0.8-3.0); PROTHROMBIN TIME 18.3 SECONDS (9.7-12.8)
[2018-12-05 07:30] LABS: HEMATOCRIT 34.4 % (42.0-52.0)
--- NOTE | 2018-12-05 08:43 | NUR ---
Patien awake at start of shift with at bedside. A&O x 3. Patient had complaints of generalized pain. Provided IV pain medication. Patient consumed breakfast. No other needs identified at this time. Will continue to monitor.
--- NOTE | 2018-12-05 10:22 | NUR ---
Initial visit; Patient resting, Copy Lathe Operator spoke with his family, letting her know of the availability of spiritual care and offered God's blessings to Mr. Perez and herself.
--- NOTE | 2018-12-05 14:19 | NUR ---
PRIYANKA met with patient and about discharge planning. Patient lives independently at home with his . Patient's PCP is Dr Sheffield and he obtains prescriptions from [facility]. Patient reports he has had issues obtaining one medication but his insurance resolved the issue. Patient uses a cane for ambulation but no other DME is used and he does not use any home health services. Patient does not have a DPOA and he is not interested in completing one at this time. PRIYANKA does not anticipate any discharge needs but will follow as needed.
--- NOTE | 2018-12-05 17:24 | NUR ---
Client continued to be NPO this AM throughout midafternoon prior to abdominal ultrasound. Patient reports tolerating ultrasound well. Patient has had complaints of abdominal pain that is constant and stabbing, feeling of fullness. Rates pain 9 prior to medication administration and least level reported after medication given is 4. Patient awake and alert, cooperative throughout shift. Other than pain, patient able to consume late lunch after ultrasound. at bedside. VS stable. No further needs reported at this time. Will continue to monitor.
--- NOTE | 2018-12-05 19:54 | NUR ---
PT RESTING IN BED A+OX4 REPORTS NO PAIN AT THIS TIME. SOME HEART BURN REPORTED- CANDIDA INSTRUMENT PROCESSING TECH GAVE NEW ORDERS FOR HEART BURN. WILL GIVEN AT THIS TIME. PICC FLUSHES WELL, BLOOD RETURN NOTED. SHIFT ASSESSMENT COMPLETE. NO NEEDS AT THIS TIME
--- NOTE | 2018-12-05 20:15 | NUR ---
PT REPROTS "HEART BURN IS WORSE AFTER PECID". PT REPORTED N/V- PRN ZOFRAN GIVEN. PT REPORTS PAIN 7/10 AT THIS TIEM IN ABD- PRN PAIN MEDS GIVEN. ASSESSMENT OF PT AFTER NAUSEA AND PAIN MEDS - PT REPORTS "I FEEL SO MUCH BETTER AND MY PAIN IS AT A 4/10 NOW."
--- NOTE | 2018-12-05 22:30 | NUR ---
PT IS NOW SLEEPING IN BED, REPORTS NO NEEDS. AT BEDSIDE.
[2018-12-06 04:00] VITALS: BP 118/69; PULSE 75; TEMP 98.2
--- NOTE | 2018-12-06 04:25 | NUR ---
PT REPORTS 7/10 PAIN IN ABD - PRN PAIN MEDS GIVEN. VSS. PICC FLUSHES WELL, BLOOD RETRN NOTED. PT REPORTS NO N/V OR HEARTBURN. NO NEEDS AT THIS TIME. CALL LIGHT IN REACH
--- NOTE | 2018-12-06 05:29 | NUR ---
PT HAD HEARTBURN AT THE BEGINNING OF THE NIGHT, PRN PECID DID NOT RELIEVE THE HEARTBURN- PRN ZOFRAN RELIEVED HEARTBURN. PT RREPORTS 7/10 PAIN DURING NIGHT, PRN DILAIDID RELIEVED PAIN TO A 3-4/10 ON PAIN SCALE. PICC FLUSHES WELL, BLOOD RETURN NOTED X2. NO NEEDS AT THIS TIME. CALL LIGHT IN REACH
[2018-12-06 06:11] LABS: BASO # 0.1 (0.0-0.2); BASO % 1.1 % (0.0-2.0); EOS # 0.3 (0.0-0.7); EOS % 3.8 % (0-4.0); GRAN # 4.5 (1.4-6.5); GRAN % 50.1 % (42.2-75.2); HEMOGLOBIN 11.3 g/dl (13.5-18.0); LYMPH # 2.8 (1.2-3.4); LYMPH % 31.6 % (20.0-51.0); MEAN CELL VOLUME 89 fl (80.0-100.0); MEAN CORPUSCULAR HEMOGLOBIN 30 pg (27.0-31.0); MEAN CORPUSCULAR HGB CONC 34 g/dl (33.0-37.0); MONO # 1.1 (0.1-0.6); MONO % 12.9 % (1.7-9.3); PLATELET COUNT 63 K/mm3 (130-400); RED BLOOD COUNT 3.73 M/mm3 (4.20-5.60); REDCELL DISTRIBUTION WIDTH-CV 17.3 % (11.5-14.5)
[2018-12-06 06:15] LABS: HEMATOCRIT 33.1 % (42.0-52.0)
[2018-12-06 06:26] LABS: ALBUMIN 2.8 gm/dL (3.5-5.0); BILIRUBIN,TOTAL 3.8 mg/dL (0.0-1.0); CREATININE, serum 0.79 (0.66-1.25); POTASSIUM 4.4 mmol/L (3.4-5.0); TOTAL PROTEIN 7.9 gm/dL (6.4-8.2)
--- NOTE | 2018-12-06 06:51 | NUR ---
REPORT GIVEN TO LESIA SRINIVASAN. PT REPORTS NO NEEDS
[2018-12-06 08:26] VITALS: BP 124/81; PULSE 88; TEMP 98.1
--- NOTE | 2018-12-06 10:35 | NUR ---
patient assessment complete and charted. Patient sitting on edge of bed upon entry. Patient rating abdominal pain 01/26. Received dilaudid PRN per AUG. DEISI PICC, no complications, good blood return and flushes well. Patient denies SOB, chest pain, dizziness, palpitations. No skin integrity issues. Patient talkative and in good mood. Patient states he had a little emesis this morning. Per patient, "I don't plan on doing chemo anymore, I'm just going to live my life." Denies other needs at this time.
--- NOTE | 2018-12-06 10:39 | NUR ---
met with ipt and his at bedside this morning. Pt reports he is tired of side effects from treatment and not feeling better. He is feeling that it is time for him to do what he wants to do, which is to travel and do what is important to him. We did discuss that stopping treatment will allow his disease to progress and will likely shorten his life/intensify his symptoms. He believes that he is aware of that. He reports he has been thinking of this for some time now and has discussed with his daughter, who was not supportive. He was encouraged to discuss with Dr Guillen further. He believes his pain is as good as it will get although reports that his "patch" fell off in the shower. Will advise nurse.
[2018-12-06 13:06] VITALS: BP 120/76; PULSE 74; TEMP 98.2
--- NOTE | 2018-12-06 17:44 | NUR ---
Patient discharged, instructions discussed and reviewed. patient verbalized understanding. No further questions. Lisa, from [facility] removed DEISI PICC, no complications. Dressing covering site was CDI. No other needs or questions at this time. Escorted out with this nurse and . Patient ambulated to car.
== END 2018-12-06 17:15 | disposition home or self-care (01) | DRG 441 ==
LOC: COL.ER 21:49 → MEDICAL 12-05 01:51
PROVIDERS: Emergency Medicine; Nurse Practitioner; Physician Assistant; ADMIT Internal Medicine
DX: I81 Portal vein thrombosis (principal); K85.90 Acute pancreatitis without necrosis or infection, unspecified; C22.0 Liver cell carcinoma; R18.8 Other ascites; K76.6 Portal hypertension; I10 Essential (primary) hypertension; I25.10 Atherosclerotic heart disease of native coronary artery without angina pectoris; D69.6 Thrombocytopenia, unspecified; B19.20 Unspecified viral hepatitis C without hepatic coma; Z66 Do not resuscitate; E87.5 Hyperkalemia; R74.0 Nonspecific elevation of levels of transaminase and lactic acid dehydrogenase [LDH]; F31.9 Bipolar disorder, unspecified; E80.6 Other disorders of bilirubin metabolism; F41.9 Anxiety disorder, unspecified; F32.9 Major depressive disorder, single episode, unspecified; F20.9 Schizophrenia, unspecified; I25.2 Old myocardial infarction; Z86.711 Personal history of pulmonary embolism; Z88.6 Allergy status to analgesic agent; Z72.0 Tobacco use
CPT/HCPCS: 99222-AI; 99233-AI; 99239; J1170; J1650; J2405; J7030; Q9967

== ENCOUNTER 2018-12-20 20:51 | Inpatient (IN) | payer MEDICAID ==
[~2018-12-20] VITALS: Ht 172.7 cm; Wt 94.5 kg
[~2018-12-20 20:51] MED LIST changes: +CORGARD40 MG PO; +DAZIDOX10 MG PO; +FENTANYL 25 MCG TD
[2018-12-20 21:15] LABS: HEMOGLOBIN 12.6 g/dl (13.5-18.0); MEAN CELL VOLUME 88 fl (80.0-100.0); MEAN CORPUSCULAR HEMOGLOBIN 31 pg (27.0-31.0); MEAN CORPUSCULAR HGB CONC 36 g/dl (33.0-37.0); PLATELET COUNT 113 K/mm3 (130-400); RED BLOOD COUNT 4.05 M/mm3 (4.20-5.60); REDCELL DISTRIBUTION WIDTH-CV 20.9 % (11.5-14.5)
[2018-12-20 21:16] LABS: HEMATOCRIT 35.5 % (42.0-52.0)
[2018-12-20 21:24] LABS: ALBUMIN 2.9 gm/dL (3.5-5.0); C-REACTIVE PROTEIN 3.3 mg/dL (0.0-0.9); POTASSIUM 4.2 mmol/L (3.4-5.0); TOTAL PROTEIN 8.7 gm/dL (6.4-8.2)
[2018-12-20 21:27] LABS: INR 1.7 (0.8-3.0); PROTHROMBIN TIME 20.7 SECONDS (9.7-12.8)
[2018-12-20 21:28] LABS: LACTIC ACID 2.2 mmol/L (0.4-2.0)
[2018-12-20 21:29] LABS: PARTIAL THROMBOPLASTIN TIME 38.3 SECONDS (26.0-37.0)
[2018-12-20 21:34] LABS: TROPONIN-I 0.045 ng/mL (0.000-0.035)
[2018-12-20 22:04] LABS: BAND 3 % (0-10); LYMPHOCYTE 14 % (20.0-51.0); NEUTROPHILS 75 % (42.0-75.2); PLATELET ESTIMATE DECREASED (NORMAL)
[2018-12-20 22:05] LABS: ANISOCYTOSIS 2+
[2018-12-20 22:06] LABS: TARGET CELLS 1+
--- NOTE | 2018-12-20 22:50 | NUR ---
Pt arrived to room 318, transferred per stretcher by ED staff. at bedside. Pt awake, a&o, cooperative c cares. Pt/wi oriented to room, unit policies et current POC. Questions invited et answered, both verbalize understanding. Pt denies needs at this time. Call light in reach. Will continue c admit process.
[2018-12-20] MEDS ORDERED: LINZESS145CAP PO (22:57)
[2018-12-20 23:05] VITALS: BP 139/89; PULSE 83; TEMP 98.3
[2018-12-20 23:07] VITALS: BP 139/88; PULSE 84; TEMP 98.3
[2018-12-21] VITALS (9 sets, daily range): BP systolic 131–159; BP diastolic 75–102; PULSE 83–89; TEMP 97.3–98.9
[2018-12-21] MEDS ORDERED: FENTANYL 50MCG TD (00:26)
--- NOTE | 2018-12-21 05:25 | NUR ---
Pt resting in bed condition unchanged. Pt has had continued c/o abd pain, moderately well controlled c PRN pain meds upon request. Pain rated as little as "3/10" et as high as "9/10". Pt has denied any other c/o or request et has otherwise rested c very few needs. remains at bedside. No needs at this time. Call light in reach.
[2018-12-21 06:42] LABS: ALBUMIN 2.7 gm/dL (3.5-5.0); BILIRUBIN,TOTAL 13.5 mg/dL (0.0-1.0); CALCIUM 7.9 mg/dL (8.4-10.2); CREATININE, serum 1.07 (0.66-1.25); POTASSIUM 4.6 mmol/L (3.4-5.0); TOTAL PROTEIN 8.5 gm/dL (6.4-8.2)
[2018-12-21 06:44] LABS: HEMOGLOBIN 12.1 g/dl (13.5-18.0); MEAN CELL VOLUME 87 fl (80.0-100.0); MEAN CORPUSCULAR HEMOGLOBIN 31 pg (27.0-31.0); MEAN CORPUSCULAR HGB CONC 36 g/dl (33.0-37.0); PLATELET COUNT 96 K/mm3 (130-400); RED BLOOD COUNT 3.92 M/mm3 (4.20-5.60); REDCELL DISTRIBUTION WIDTH-CV 20.5 % (11.5-14.5)
[2018-12-21 07:19] LABS: BAND 16 % (0-10); EOSINOPHIL 1 % (0-4); LYMPHOCYTE 4 % (20.0-51.0); NEUTROPHILS 68 % (42.0-75.2)
[2018-12-21 07:20] LABS: PLATELET ESTIMATE DECREASED (NORMAL); TARGET CELLS 1+
[2018-12-21 07:21] LABS: TROPONIN-I 0.043 ng/mL (0.000-0.035)
[2018-12-21 07:54] LABS: COLLECTION METHOD CLEAN CATCH
[2018-12-21 08:07] LABS: AMORPHOUS CRYSTAL Present /uL; MUCOUS Present /lpf; PH 5 (5-8); SQUAMOUS EPITHELIAL 0-2 /hpf; URINE APPEARANCE Cloudy; URINE BACTERIA Rare /hpf; URINE BILIRUBIN Positive (NEGATIVE); URINE BLOOD Negative (NEGATIVE); URINE COLOR Amber; URINE GLUCOSE Negative (NEGATIVE); URINE KETONE Trace (NEGATIVE); URINE LEUKOCYTE ESTERASE Negative (NEGATIVE); URINE NITRATE Negative (NEGATIVE); URINE PROTEIN(semi-quant) 1+ (NEGATIVE); URINE UROBILINOGEN >=4.0 mg/dL (NEGATIVE)
--- NOTE | 2018-12-21 11:37 | NUR ---
Pt awake and alert upon entry, Has C/O pain 8/10, pain medications given, recheck pain reduced to 4/10 and tolerable. shift assessments complete, +4 pitting edema in bilat lower extremities noted, Pt distended and firm.
[2018-12-21 15:05] LABS: INR 1.5 (0.8-3.0); PROTHROMBIN TIME 18.2 SECONDS (9.7-12.8)
--- NOTE | 2018-12-21 16:46 | NUR ---
SW met with patient and about discharge planning. Patient lives at home with his . Patient's PCP is Dr Sheffield and he obtains prescriptions from [facility]. Patient uses a cane for ambulation but no other DME is used and he does not use any home health services. During rounds, doctor addressed goals of care. Patient reports he wants to be comfortable at home. Patient reports if the fluid in his stomach was drained he would be more comfortable. SW inquired if patient would be interested in any home health services. Patient reports he would like to speak with his before making any decisions. Patient does not have a DPOA and he is not interested in completing one at this time. SW will follow up with patient after he speaks to his .
[2018-12-21 16:47] LABS: PERITONEAL -POLYMORPHONUCLEAR 4.4 % (0-25); PERITONEAL FLUID RBC 1000 /mm3 (0-0)
--- NOTE | 2018-12-21 18:17 | NUR ---
Pt comfortable in room, went to ultrasound for paracentesis this afternoon and states that his pain is much decreased and he is able to breathe much easier, VS have remained stable.
--- NOTE | 2018-12-21 20:30 | NUR ---
Initial shift assessment done- states abd pain 07/29, denies need for pain meds, states he feels so much better after paracentesis today,,Tele on, VSS, Is refusing his SCD,s
[2018-12-22 04:22] VITALS: BP 144/80; PULSE 89; TEMP 98.7
[2018-12-22 06:13] LABS: HEMOGLOBIN 11.3 g/dl (13.5-18.0); MEAN CELL VOLUME 87 fl (80.0-100.0); MEAN CORPUSCULAR HEMOGLOBIN 31 pg (27.0-31.0); MEAN CORPUSCULAR HGB CONC 36 g/dl (33.0-37.0); PLATELET COUNT 89 K/mm3 (130-400); RED BLOOD COUNT 3.64 M/mm3 (4.20-5.60); REDCELL DISTRIBUTION WIDTH-CV 20.4 % (11.5-14.5)
[2018-12-22 06:15] LABS: INR 1.7 (0.8-3.0); PROTHROMBIN TIME 19.8 SECONDS (9.7-12.8)
[2018-12-22 06:20] LABS: ALBUMIN 2.7 gm/dL (3.5-5.0); BILIRUBIN,TOTAL 12.8 mg/dL (0.0-1.0); CALCIUM 7.6 mg/dL (8.4-10.2); CREATININE, serum 1.28 (0.66-1.25); POTASSIUM 4.5 mmol/L (3.4-5.0); TOTAL PROTEIN 8.5 gm/dL (6.4-8.2)
[2018-12-22 06:38] LABS: HEMATOCRIT 31.5 % (42.0-52.0)
--- NOTE | 2018-12-22 06:45 | NUR ---
Quiet night- did get one oxycodone around 0430 for abd pain- otherwise slept well all night
--- NOTE | 2018-12-22 07:29 | NUR ---
Received report, patient is awake and alert in room, is at bedside. Is observed sitting on side of bed getting ready to order food. Patient verbalizes he is feeling so much better than yesterday. Denies pain at this time, was reported to receive PRN pain medication last night and stated he slept well. Utilizes cane during ambulation and assists. Respirations are even and non-labored. Personal items and call light is within reach.
[2018-12-22 07:44] VITALS: BP 127/75; PULSE 94; TEMP 98
[2018-12-22 08:02] LABS: BAND 23 % (0-10); EOSINOPHIL 3 % (0-4); LYMPHOCYTE 6 % (20.0-51.0); MYELOCYTE 1 % (0-0); NEUTROPHILS 58 % (42.0-75.2)
[2018-12-22 08:03] LABS: HYPOCHROMIA 1+; PLATELET ESTIMATE DECREASED (NORMAL); TARGET CELLS 2+
[2018-12-22 11:08] VITALS: BP 148/83; PULSE 91; TEMP 97.9
--- NOTE | 2018-12-22 12:01 | NUR ---
Spoke with patient if he had any needs, did take patient fresh ice water. Was asked if he was experiencing any pain and he stated yes, did not rate. Offered pain medication and he stated he wanted some but didn't. Agreed to call for staff if he felt he needed PRN pain med.
--- NOTE | 2018-12-22 12:27 | NUR ---
PRIYANKA attended clinical rounds. The patient was wanting hospice services after speaking to Dr. Guillen. After further discussion with the hospitalist, the patient reports that he is not ready for hospice services. PRIYANKA then discussed home health services. The patient reports that he is not interested in home health at this time. The patient is to discharge back home with his today, 12/22. No additional needs at this time.
[2018-12-22] MEDS ORDERED: CORGARD20 MG PO (12:41)
[2018-12-22] MEDS ORDERED: ALDACTONE 100M100 MG PO (12:42)
[2018-12-22] MEDS ORDERED: LASIX 40MG TABL40 MG PO (12:45)
--- NOTE | 2018-12-22 14:50 | NUR ---
Patient discharged home at 1420 accompanied by via private car. Personal belongings sent with patient. Did administer PRN pain medication prior to leaving for back pain.
== END 2018-12-22 14:20 | disposition home or self-care (01) | DRG 442 ==
LOC: COL.ER 20:51 → MEDICAL 21:56 → COL.ER 21:56 → MEDICAL 21:56
PROVIDERS: Emergency Medicine; Nurse Practitioner Family; ADMIT Hospitalist
PROC: 0W9G3ZZ Drainage of Peritoneal Cavity, Percutaneous Approach (ICD-10-PCS; principal; 2018-12-21)
DX: I81 Portal vein thrombosis (principal); R18.8 Other ascites; C22.0 Liver cell carcinoma; C79.9 Secondary malignant neoplasm of unspecified site; R65.10 Systemic inflammatory response syndrome (SIRS) of non-infectious origin without acute organ dysfunction; F31.9 Bipolar disorder, unspecified; F20.9 Schizophrenia, unspecified; F41.9 Anxiety disorder, unspecified; I10 Essential (primary) hypertension; Z66 Do not resuscitate; K74.60 Unspecified cirrhosis of liver; I25.10 Atherosclerotic heart disease of native coronary artery without angina pectoris; B19.20 Unspecified viral hepatitis C without hepatic coma; D69.6 Thrombocytopenia, unspecified; F17.210 Nicotine dependence, cigarettes, uncomplicated; E80.6 Other disorders of bilirubin metabolism; R74.0 Nonspecific elevation of levels of transaminase and lactic acid dehydrogenase [LDH]; I25.2 Old myocardial infarction; Z86.711 Personal history of pulmonary embolism; Z88.8 Allergy status to other drugs, medicaments and biological substances
CPT/HCPCS: 99223-AI; 99239; J0696; J1170; J2405; J3010; J7030